=== PATIENT | female | born 1975 | race Asian ===

== ENCOUNTER 2023-06-25 11:44 | Emergency (ER) | payer MEDICAID, OTHER ==
[~2023-06-25] VITALS: Ht 154.9 cm; Wt 54.4 kg
[2023-06-25 12:34] LABS: Hemoglobin 14.3 g/dL (12.2-16.2)
[2023-06-25 12:36] LABS: Hematocrit 44.6 % (36.0-46.0); Mean Corpuscular Hemoglobin 27.3 pg (28.0-32.0); Mean Corpuscular Volume 85.2 fL (80.0-100.0); Red Blood Cells 5.24 10^6/uL (4.0-5.20); Red Cell Distribution Width 15.1 % (11.8-14.3)
[2023-06-25] MEDS ORDERED: MORPHINE SULFATE 4 MG/ML SYR/VIAL IV ONE (12:45)
[2023-06-25] MEDS ORDERED: ONDANSETRON HCL 4 MG/2 ML VIAL IV ONE (12:45)
[2023-06-25] MEDS ORDERED: ASPirin 81 mg TAB PO ONE (12:45)
[2023-06-25 12:46] LABS: Alanine Aminotransferase 33 U/L (7-40); Albumin 4.6 g/dL (3.2-4.8); Alkaline Phosphatase 60 U/L (46-116); Anion Gap 6.7 (5-15); Aspartate Aminotransferase 15 U/L (13-40); BUN/Creatinine Ratio 16.4 (10.0-20.0); Bilirubin, Total 0.4 mg/dL (0.2-1.0); Blood Urea Nitrogen 11 mg/dL (9-23); Calcium 9.4 mg/dL (8.5-10.1); Carbon Dioxide 24.3 mmol/L (20-30); Chloride 106 mmol/L (98-107); Glucose 125 mg/dL (74-106); Potassium 4.2 mmol/L (3.5-5.1); Sodium 137 mmol/L (136-145)
[2023-06-25 12:47] LABS: Total Protein 7.6 g/dL (5.7-8.2)
[2023-06-25 13:19] LABS: Basophils % (manual) 0 (0.0-2.0); Blast Cells 0; Myelocytes % 0; Promyelocytes % 0; Reactive Lymphocytes 0
[2023-06-25] MEDS ORDERED: IOHEXOL 350 MG/ML 100ML IJ ONE (13:21)
[2023-06-25 13:25] LABS: INR 0.98 (0.9-1.15); Partial Thromboplastin Time 27.4 SEC (24.5-34.5); Prothrombin Time 10.3 sec (9.3-11.8)
[2023-06-25 14:12] LABS: Band Neutrophils % (manual) 3; Eosinophils % (manual) 2 (0-7); Lymphocytes % (manual) 7 (10.0-50.0); Metamyelocytes % 2; Monocytes % (manual) 3 (0-12)
[2023-06-25 14:20] LABS: Platelet Estimate Increased
[2023-06-25 17:00] VITALS: BP 129/84; PULSE 79; RESP 18; TEMP 97; O2SAT 97
== END 2023-06-25 17:11 | disposition home or self-care (01) ==
LOC: ER 11:44
DX: R20.0 Anesthesia of skin (principal); C85.90 Non-Hodgkin lymphoma, unspecified, unspecified site; F41.9 Anxiety disorder, unspecified; R51.9 Headache, unspecified; R06.02 Shortness of breath; Z79.01 Long term (current) use of anticoagulants; Z79.899 Other long term (current) drug therapy
CPT/HCPCS: 36415; 70450; 70496; 71045; 80053; 80320; 83735; 83880; 84443; 84484; 85007; 85027; 85610; 85730; 93005; 99285; J2405; Q9967

== ENCOUNTER 2023-12-30 10:40 | Inpatient (IN) | payer MEDICAID ==
[~2023-12-30] VITALS: Ht 144.8 cm; Wt 55.0 kg
[2023-12-30 10:55] VITALS: BP 130/70; PULSE 93; RESP 18; O2SAT 97
[2023-12-30 11:35] LABS: Basophils # (auto) 0 10 ^3/uL (0-0.2); Basophils % (auto) 0.4 % (0.0-2.0); Eosinophils # (auto) 0 10 ^3/uL (0-0.8); Hemoglobin 12.5 g/dL (12.2-16.2); Lymphocytes % (auto) 31.2 % (10.0-50.0); Mean Corpuscular Hemoglobin 32.2 pg (28.0-32.0); Mean Corpuscular Hgb Conc. 32.9 g/dL (32.0-36.0); Mean Corpuscular Volume 97.9 fL (80.0-100.0); Monocytes # (auto) 0.2 10 ^3/uL (0-1.3); Monocytes % (auto) 7.1 % (0.0-12.0); Neutrophils % (auto) 60.3 % (37.0-80.0); Red Blood Cells 3.89 10^6/uL (4.0-5.20); Red Cell Distribution Width 13.4 % (11.8-14.3); White Blood Cell 3.3 10^3/uL (4.4-10.8)
[2023-12-30 11:55] LABS: INR 0.96 (0.9-1.15); Partial Thromboplastin Time 26.2 SEC (24.5-34.5); Prothrombin Time 10.1 sec (9.3-11.8)
[2023-12-30 11:58] LABS: Alanine Aminotransferase 27 U/L (7-40); Albumin 4.5 g/dL (3.2-4.8); Alkaline Phosphatase 99 U/L (46-116); Anion Gap 6 (5-15); Aspartate Aminotransferase 20 U/L (13-40); BUN/Creatinine Ratio 14.8 (10.0-20.0); Blood Urea Nitrogen 9 mg/dL (9-23); Calcium 8.5 mg/dL (8.7-10.4); Carbon Dioxide 25 mmol/L (20-30); Chloride 108 mmol/L (98-107); Glucose 133 mg/dL (74-106); Lipase 64 U/L (12-53); Potassium 3.4 mmol/L (3.5-5.1); Sodium 139 mmol/L (136-145)
[2023-12-30 11:59] LABS: Bilirubin, Total 0.4 mg/dL (0.2-1.0); Total Protein 7.3 g/dL (5.7-8.2)
[2023-12-30] MEDS ORDERED: DOCUSATE SOD 100 MG CAP PO PRN ×2 (15:30→15:45)
[2023-12-30] MEDS ORDERED: MORPHINE SULFATE INJ 2 MG/ml SYRG IV PRN ×4 (15:30→15:45)
[2023-12-30] MEDS ORDERED: ONDANSETRON HCL 4 MG/2 ML VIAL IV PRN ×2 (15:30→15:45)
[2023-12-30] MEDS ORDERED: ACETAMINOPHEN 500 MG TAB PO PRN ×2 (15:30→15:45)
[2023-12-30] MEDS ORDERED: NITROGLYCERIN 0.4 MG SL TAB SL PRN ×2 (15:30→15:45)
[2023-12-30] MEDS ORDERED: SOD CHL 0.9%/ KCL 20MEQ 1,000 ML IV ONE (15:30)
[2023-12-30] MEDS ORDERED: HYDROcodone-ACET 5/325MG TAB PO PRN ×2 (15:30→15:45)
[2023-12-30] MEDS: SOD CHL 0.9%/ KCL 20MEQ 1,000 ML IV ONE (15:45)
[2023-12-30] MEDS: IOHEXOL 350 MG/ML 100ML IJ ONE (16:18)
== END 2023-12-30 18:15 | disposition left against medical advice (07) | DRG 691 ==
LOC: ER 10:40 → TELE 15:33
PROVIDERS: ADMIT Nurse Practitioner Acute Care; ATTEND Nurse Practitioner Acute Care
DX: C95.90 Leukemia, unspecified not having achieved remission (principal); E87.6 Hypokalemia; Z53.29 Procedure and treatment not carried out because of patient's decision for other reasons; I10 Essential (primary) hypertension; R51.9 Headache, unspecified; N91.2 Amenorrhea, unspecified
CPT/HCPCS: 36415; 70450; 71045; 71275; 80053; 83001; 83605; 83690; 83880; 84484; 85025; 85379; 85610; 85730; 87040; 93970; 96365; G0378